=== PATIENT | female | born 1975 | race Caucasian/White ===

== ENCOUNTER 2017-02-16 00:40 | Emergency (ER) | payer OTHER ==
[2017-02-16 01:44] LABS: Hematocrit 42.6 % (37.0-47.0); Hemoglobin 14.6 gm/dL (12.5-16.0); Mean Cell Volume 87.5 fl (78-100); Mean Corpuscular Hgb Conc 34.3 g/dl (32-36); Neutrophil # 12.4 K/mm3 (1.3-6.0); Neutrophil % 77.4 % (42-75.0); Platelet Count 361 K/mm3 (150-450); Red Blood Count 4.87 M/mm3 (4.2-5.4); Red Cell Distribution Width 13.5 % (11.5-14.0)
--- NOTE | 2017-02-16 01:44 | ERNOTE ---
Medical Problem HPI - General Chief Complaint: General Assessment Time Seen by Provider: 02/16/17 01:26 Source: patient, family Exam Limitations: no limitations - Immun/Allergies/Home Medications Immunizations: IMMUNIZATION HX Immunizations Up to Date Yes History of Influenza Vaccine No Hx Pneumococcal Vaccination No Allergies/Adverse Reactions: Allergies adhesive Allergy (Verified 10/31/14 12:17) lactose Adverse Reaction (Verified 10/31/14 12:17) Home Medications: HOME MEDICATIONS Dicyclomine HCl [Bentyl] 10 mg PO TID PRN #20 capsule 02/16/17 [Last Taken Unknown] FLUoxetine HCL [Fluoxetine HCl] 20 mg PO DAILY 02/16/17 [Last Taken Unknown] Hydrochlorothiazide [Hydrodiuril] 25 mg PO DAILY 02/16/17 [Last Taken Unknown] Lisinopril [Zestril] 10 mg PO DAILY 02/16/17 [Last Taken Unknown] - History of Present History Narrative: 4 days ago pt had onset of left sided tingling and numbness, along with chest pressure. Two days ago she presented to another ED with these symptoms and was evaluated. According to the patient CT head and C-spine, EKG and blood work was done and was unremarkable. She was diagnosed with HTN and anxiety and given anti-hypertensive, anti-depressant and an anxiolytic. She states she is not improving and has increasing tingling and pressure. Timing: getting worse Severity: moderate, severe Review of Systems - Review of Systems Constitutional: Present: diaphoresis, weakness. Absent: recent illness EYE: Present: no symptoms reported ENT: Present: no symptoms reported Respiratory: Present: shortness of breath Cardiology: Present: See HPI - chest pressure Gastrointestinal/Abdominal: Present: nausea, vomiting - upon arriving in the ED today Genitourinary: Present: no symptoms reported Musculoskeletal: Present: back pain Skin: Present: other - bruise on her RLQ Neurological: Present: See HPI, numbness, tingling Endocrine: Present: excessive sweating Hematologic/Lymphatic: Present: easy bruising Psych: Present: no symptoms reported - Patient's Past Medical History Patient History - Medical: Anxiety Patient History - Cardiac/Respiratory: Hypertension Patient History - Cancer: No Hx of Cancer Patient History - Surgical Procedures: Back Surgery, Tubal Ligation, Other Patient History - Other: None LMP (females 10-50): last week - Family History Mother Family History - Medical: Diabetes Type 2 Family History - Cardiac/Respiratory: Coronary Heart Disease, Hypertension Family History - Cancer: No pertinent family hx Father Family History - Medical: Family History - Cardiac/Respiratory: Coronary Heart Disease Family History - Cancer: Lung - Social History Living Situations: spouse Abuse History: No History of abuse Psych History: Hx of Anxiety, Hx of Depression Smoking Status: Current every day smoker Have you smoked in the past 12 months: Yes Do you dip or chew tobacco: No Patient requests Smoking Cessation Consult: No Initiate information on Smoking Cessation: No Alcohol Use: none Drug Use: none - Immunizations Immunizations Up to Date: Yes Hx Pneumococcal Vaccination: No History of Influenza Vaccine: No Physical Exam - Physical Exam General Appearance: Present: wd/wn, alert, mild distress Head Exam: Present: normal inspection, no evidence of injury Eye Exam: Normal inspection: bilateral, PERRL: bilateral, EOMI: bilateral Ears, Nose, Throat: Present: normal ENT inspection, normal pharynx Neck: Present: normal inspection, nontender Respiratory: Present: no respiratory distress, normal breath sounds, no accessory muscle use, chest nontender, lungs clear Cardiovascular/Chest: Present: regular rate, rhythm, no murmur, normal peripheral pulses Gastrointestinal/Abdominal: Present: normal bowel sounds, nontender, nondistended, soft Extremity Exam: Present: normal inspection, normal range of motion, no edema Neurological Exam: Present: alert, oriented, normal mood/affect, no motor/ sensory deficits Skin Exam: Present: normal color, warm/dry Lymphatic Exam: Present: no adenopathy ED Progress - Results and Orders Patient's Lab Results:: I have reviewed the patient's lab results. Results and Orders: Laboratory Tests 02/16/17 02/16/17 02/16/17 01:35 01:35 01:35 WBC 16.0 H Hgb 14.6 Hct 42.6 Plt Count 361 Neutrophils % 77.4 H Lymphocytes % 15.7 L ESR 23 H PT 9.6 INR (Anticoag Therapy) 0.96 PTT ([place]) 24.3 Sodium Potassium Chloride Carbon Dioxide Anion Gap BUN Creatinine Random Glucose Calcium Total Bilirubin AST ALT Alkaline Phosphatase C-Reactive Prot, Quant Total Protein Albumin Urine Color Urine Appearance Urine pH Ur Specific [place] Urine Protein Urine Glucose (UA) Urine Ketones Urine Blood Urine Nitrate Urine Bilirubin Urine Urobilinogen Ur Leukocyte Esterase Urine RBC Urine WBC Ur Epithelial Cells Amorphous Sediment Urine Bacteria Urine Mucus Urine Culture Comments 02/16/17 02/16/17 01:35 02:09 WBC Hgb Hct Plt Count Neutrophils % Lymphocytes % ESR PT INR (Anticoag Therapy) PTT ([place]) Sodium 134 Potassium 3.5 Chloride 98 Carbon Dioxide 26.3 Anion Gap 13.2 BUN 12 Creatinine 0.92 Random Glucose 124 H Calcium 8.8 Total Bilirubin 0.5 AST 12 ALT 18 L Alkaline Phosphatase 83 C-Reactive Prot, Quant 2.7 H Total Protein 7.3 Albumin 3.2 L Urine Color Yellow Urine Appearance Clear Urine pH 6.0 Ur Specific [place] 1.020 Urine Protein Negative Urine Glucose (UA) Negative Urine Ketones Negative Urine Blood Negative Urine Nitrate Negative Urine Bilirubin Negative Urine Urobilinogen Normal Ur Leukocyte Esterase Negative Urine RBC 0-5 Urine WBC 0-5 Ur Epithelial Cells 10-25 H Amorphous Sediment Moderate - 2+ H Urine Bacteria None seen Urine Mucus Few - 1+ H Urine Culture Comments No culture indicated - Vital Signs Patient's Vital Signs:: I have reviewed the patient's vital signs. Vital Signs: Vital Signs 02/16/17 01:13 Temperature 36.5 C Pulse Rate 80 Respiratory 18 Rate Blood Pressure 133/84 O2 Sat by Pulse 95 Oximetry - X-Ray X-Ray #1 X-Ray: chest Interpretation: Interp. by me X-ray Comments: no acute cardiopulmonary changes X-Ray #2 X-Ray: abdomen Interpretation: Interp. by me X-ray Comments: moderate stool, no a/f levels or evidence for obstruction - CT/Ultrasound CT/Ultrasound Narrative: CT abd/pelvis with IV and oral contrast: Long segment jejunal mural thickening with mesenteric fat stranding compatible with infectious or inflammatory enteritis. No bowel obstruction complex septated left adnexal cystic mass measuring 3.5 c 5.3 cm. Smaller right adnexal cyst 2.4 x 2.1 cm small amount of abdominal and pelvic free fluid mulitfocal left renal cortical scarring small fat-containing right paramedian periumbilical hernia - Progress/Reassessment Chief Complaint: General Assessment Progress:: Improved Progress Note-Subjective: 02/16/17 03:29 Pt having increasing nausea. Will start IV, give zofran and fluids and order CT abd/ pelvis 02/16/17 07:[address] results and the possibility of infectious vs. inflammatory cause. I suggested trying a low fiber diet and some bentyl for the cramping for a few days and if not improving she could talk to her PCP about further testing to r/ o IBD. Pt expressed agreement. Departure Clinical Impression: Enteritis, Tingling of left arm and left side of face, Numbness and tingling of left leg - Departure Disposition: Home Follow Up Needed Condition: Fair Instructions: Low-Fiber Diet Additional Instructions: Clear liquids to soft diet for 3-5 days. Follow up with your primary care physician to discuss any remaining abdominal symptoms and your numbness and tingling. Referrals: Jethro Rogers DO [Primary Care Provider] - Prescriptions: Dicyclomine HCl [Bentyl] 10 mg PO TID PRN #20 capsule PRN Reason: Pain
[2017-02-16 01:55] LABS: Prothrombin Time (Patient) 9.6 Seconds (9.0-11.0)
[2017-02-16 01:59] LABS: Albumin * 3.2 gm/dl (3.4-5.0); Anion Gap 13.2 mmol/L (6.8-13.8); Bilirubin, Total 0.5 mg/dL (0.0-1.1); CRP 2.7 mg/dL (0.0-0.9); Ca. Corrected For Albumin 9.1 mg/dL (8.4-10.2); Calcium * 8.8 mg/dL (7.9-10.9); Carbon Dioxide 26.3 mmol/L (24-32.6); INR 0.96 INR (0.90-1.10); Partial Thrombolplastin Time 24.3 Seconds (24-32); Potassium 3.5 mmol/L (3.4-4.6); Total Protein 7.3 gm/dL (6.2-8.2)
[2017-02-16 02:44] LABS: Urine Amorphous Sediment Moderate - 2+ (NONE-FEW); Urine Appearance Clear; Urine Bacteria None Seen; Urine Bilirubin Negative (NEGATIVE); Urine Blood Negative /ul (NEGATIVE); Urine Color Yellow; Urine Ketone Negative (NEGATIVE); Urine Mucus Few - 1+; Urine Nitrite Negative (NEGATIVE); Urine Protein Negative (NEGATIVE); Urine RBC 0-5 /hpf (0-5); Urine Urobilinogen Normal (NORMAL); Urine WBC 0-5 /hpf (0-5)
[2017-02-16] MEDS ORDERED: NORMAL SALINE 1,000 ML IV ONE (03:25)
[2017-02-16] MEDS ORDERED: ONDANSETRON HCL/PF 2 MG/ML VIAL IV ONE (03:25)
[2017-02-16] MEDS ORDERED: ONDANSETRON HCL/PF 2 MG/ML VIAL ONE (03:32)
[2017-02-16] MEDS ORDERED: DIATRIZOATE MEGLUMINE, SODIUM 30 ML BTL PO ONE (03:58)
[2017-02-16] MEDS ORDERED: DIATRIZOATE MEGLUMINE, SODIUM 30 ML BTL ONE (04:00)
[2017-02-16] MEDS ORDERED: PROCHLORPERAZINE EDISYLATE 5 MG/ML VIAL IV ONE (05:23)
[2017-02-16] MEDS ORDERED: PROCHLORPERAZINE EDISYLATE 5 MG/ML VIAL ONE (05:26)
[2017-02-16 06:53] VITALS: BP 144/80
[2017-02-16] MEDS ORDERED: DICYCLOMINE HCL 10 MG CAPSULE PO ONE (06:59)
[2017-02-16] MEDS ORDERED: DICYCLOMINE HCL 20 MG TABLET ONE (07:03)
== END 2017-02-16 07:12 | disposition home or self-care (01) ==
LOC: ER 00:40
DX: K52.9 Noninfective gastroenteritis and colitis, unspecified (principal); R20.2 Paresthesia of skin; R20.0 Anesthesia of skin; I10 Essential (primary) hypertension; F41.9 Anxiety disorder, unspecified; F17.200 Nicotine dependence, unspecified, uncomplicated
CPT/HCPCS: 36415; 71020; 74020; 74177; 80053; 81001; 85025; 85610; 85652; 85730; 86140; 96374; 96375; 99285; J2405